=== PATIENT | female | born 1985 | race Caucasian/White ===

== ENCOUNTER 2019-08-22 00:09 | Inpatient (IN) | payer SELFPAY ==
[~2019-08-22] VITALS: Ht 165.1 cm; Wt 81.6 kg
[2019-08-22 00:50] LABS: BASOPHILS 0.2 % (0-2); EOSINOPHILS 0.4 % (0-7); HEMATOCRIT 35.4 % (36.0-48.0); HEMOGLOBIN 12.1 g/dL (12-16); IMMATURE GRANULOCYTES 0.6 % (0-5); LYMPHOCYTES 10.8 % (15-50); MCHC 34.2 g/dL (31.0-37.0); MCV 99.4 fL (80.0-100.0); MEAN PLATELET VOLUME 10.5 fL (7.4-10.4); MONOCYTES 8.8 % (2-11); NEUTROPHILS 79.2 % (40-80); PLATELET COUNT 347 10x3/uL (130-400); RBC 3.56 10x6/uL (4.00-5.40); RDW 14.6 % (11.5-14.5); WBC 16.7 10x3/uL (4.8-10.8)
[2019-08-22 00:55] LABS: UDS - AMPHET NEGATIVE QUAL (NEGATIVE); UDS - BARB NEGATIVE QUAL (NEGATIVE); UDS - BENZO NEGATIVE QUAL (NEGATIVE); UDS - COCAINE NEGATIVE QUAL (NEGATIVE); UDS - OPIATE POSITIVE QUAL (NEGATIVE); UDS - PCP NEGATIVE QUAL (NEGATIVE); UDS - THC POSITIVE QUAL (NEGATIVE)
[2019-08-22 01:00] VITALS: BP 136/81
[2019-08-22 01:02] LABS: BILIRUBIN NEGATIVE (NEGATIVE); GLUCOSE NEGATIVE (NEGATIVE); KETONE LARGE mg/dL (NEGATIVE); NITRITE NEGATIVE (NEGATIVE); SPECIFIC GRAVITY 1.015 (1.005-1.020); UROBILINOGEN NORMAL (NORMAL)
[2019-08-22 01:03] LABS: CALC OSMOLALITY 268 mosm/kg (275-300); CALCIUM 8.5 mg/dL (8.5-10.1); CHLORIDE - SERUM 101 mmol/L (98-107); CREATININE - SERUM 0.6 mg/dL (0.6-1.3); GLUCOSE 89 mg/dL (74-106); POTASSIUM - SERUM 3.2 mmol/L (3.5-5.1); SODIUM 137 mmol/L (136-145); UREA NITROGEN 2 mg/dL (7-18); eGFR NON AFRICAN AMERICAN > 90 mL/min (90-120)
[2019-08-22 01:04] LABS: BACTERIA MODERATE /hpf (NEGATIVE); EPITHELIAL CELLS 0-5 /hpf (0-5); RED CELLS - URINE 0-5 /hpf (0-5); WHITE CELLS - URINE 0-5 /hpf (NEGATIVE)
[2019-08-22 01:20] LABS: ALBUMIN 2.6 g/dL (3.4-5.0); ALKALINE PHOSPHATASE 210 U/L (30-120); ALT (SGPT) 41 U/L (10-68); BILIRUBIN - TOTAL 0.61 mg/dL (0.2-1.3); LIPASE 1144 U/L (73-393); PRO BNP 628 pg/mL (0-125); PROTEIN - SERUM 6.7 g/dL (6.4-8.2); TROPONIN-I < 0.017 ng/mL (0.000-0.060)
[2019-08-22 02:21] LABS: HCG URINE NEGATIVE (NEGATIVE)
[2019-08-22 02:30] VITALS: BP 121/68
[2019-08-22 08:17] LABS: INR 0.99 (0.85-1.17)
[2019-08-22 09:42] VITALS: BMI 29.9
--- NOTE | 2019-08-22 11:45 | NUR ---
TO IR VIA BED
[2019-08-22 15:49] VITALS: Ht 165.1 cm; Wt 81.6 kg
[2019-08-22 16:13] LABS: AMYLASE - BODY FLUID 452 U/L; LIPASE - BODY FLUID 13919 U/L
[2019-08-22 16:18] VITALS: BP 116/71
[2019-08-22 20:00] VITALS: BP 109/61
[2019-08-23] VITALS: BP 112/63
[2019-08-23 04:00] VITALS: BP 128/68
--- NOTE | 2019-08-23 04:30 | NUR ---
PT RESTING IN BED. EYES CLSOSED. NO SIGNS OF DISTRESS. BREATHING EVEN AND UNLABORED. IV SITE LT FA DRESSING CLEAN DRY AND INTACT. NO SIGNS OF INFECITON OR INFULTRATION. LUNG SOUNDS CLEAR. BOWEL SOUNDS ACTIVE. ABD INCISION SITE CLEAN DRY AND INTACT. TESS DRAIN LT UPPER ABD CLEAN DRY AND INTACT. ABD DISTENDED. WILL CONTINUE PLAN OF CARE. CALL LIGHT IN REACH. BED LOWERED AND LOCKED. BED RAILS UPX2.
[2019-08-23 04:54] LABS: BASOPHILS 0.2 % (0-2); EOSINOPHILS 0.4 % (0-7); HEMATOCRIT 32.7 % (36.0-48.0); HEMOGLOBIN 10.6 g/dL (12-16); IMMATURE GRANULOCYTES 0.5 % (0-5); LYMPHOCYTES 8.9 % (15-50); MCH 32.8 pg (26.0-34.0); MCHC 32.4 g/dL (31.0-37.0); MCV 101.2 fL (80.0-100.0); MEAN PLATELET VOLUME 10.8 fL (7.4-10.4); MONOCYTES 8.8 % (2-11); NEUTROPHILS 81.2 % (40-80); PLATELET COUNT 388 10x3/uL (130-400); RBC 3.23 10x6/uL (4.00-5.40); RDW 15.3 % (11.5-14.5); WBC 13.1 10x3/uL (4.8-10.8)
[2019-08-23 05:29] LABS: ALBUMIN 2.2 g/dL (3.4-5.0); ALKALINE PHOSPHATASE 226 U/L (30-120); ALT (SGPT) 31 U/L (10-68); BILIRUBIN - TOTAL 0.58 mg/dL (0.2-1.3); CALCIUM 7.9 mg/dL (8.5-10.1); CARBON DIOXIDE 20.9 mmol/L (21.0-32.0); CHLORIDE - SERUM 105 mmol/L (98-107); CREATININE - SERUM 0.6 mg/dL (0.6-1.3); GLUCOSE 85 mg/dL (74-106); PROTEIN - SERUM 6.1 g/dL (6.4-8.2); SODIUM 140 mmol/L (136-145); eGFR NON AFRICAN AMERICAN > 90 mL/min (90-120)
[2019-08-23 05:32] LABS: CALC OSMOLALITY 274 mosm/kg (275-300); POTASSIUM - SERUM 2.9 mmol/L (3.5-5.1); UREA NITROGEN 4 mg/dL (7-18)
--- NOTE | 2019-08-23 06:00 | NUR ---
I have reviewed this patient and I concur with the Shift Assessment completed by the Licensed Practical Nurse today this shift.
--- NOTE | 2019-08-23 07:23 | NUR ---
PT K+ IS 2.9 THIS MORNING, ORDERED EP FOR PT TO REPLACE K+. CONTINUE WITH PLAN OF CARE
--- NOTE | 2019-08-23 07:47 | NUR ---
PT INQUIRED ON WHEN SHE WILL BE DC HOME AND HOW MUCH TIME RECOVERY WILL BE, INFORMED PT THAT RECOVERY DIFFERS FOR EACH PT AND IT DEPENDS ON WELL HER BODY HEALS. PT K+ IS LOW ADMINISTERED PRN K+, PT TEMP IS 100.3 WILL ADMINISTER TYLENOL. ADVANCED PT DIET TO FL, CONTINUE WITH PLAN OF CARE
[2019-08-23 08:00] VITALS: BP 103/69
[2019-08-23 09:45] LABS: MAGNESIUM - SERUM 1.9 mg/dL (1.8-2.4)
[2019-08-23 12:00] VITALS: BP 106/59
[2019-08-23 16:00] VITALS: BP 116/77
--- NOTE | 2019-08-23 19:42 | NUR ---
I have reviewed this patient and I concur with the Shift Assessment completed by the Licensed Practical Nurse today this shift.
[2019-08-23 20:00] VITALS: BP 120/71
[2019-08-24] VITALS: BP 131/75
[2019-08-24 04:00] VITALS: BP 148/61
--- NOTE | 2019-08-24 06:12 | NUR ---
IV RESITED TO RIGHT FA 22 JULIO. ATEMPTS X3. PER BEAULL
[2019-08-24 06:57] LABS: BASOPHILS 0.1 % (0-2); EOSINOPHILS 0.7 % (0-7); HEMATOCRIT 28.3 % (36.0-48.0); HEMOGLOBIN 9.2 g/dL (12-16); IMMATURE GRANULOCYTES 0.3 % (0-5); LYMPHOCYTES 13.4 % (15-50); MCH 32.3 pg (26.0-34.0); MCHC 32.5 g/dL (31.0-37.0); MCV 99.3 fL (80.0-100.0); MEAN PLATELET VOLUME 10.8 fL (7.4-10.4); MONOCYTES 7.8 % (2-11); NEUTROPHILS 77.7 % (40-80); PLATELET COUNT 374 10x3/uL (130-400); RBC 2.85 10x6/uL (4.00-5.40); RDW 15.5 % (11.5-14.5); WBC 11.9 10x3/uL (4.8-10.8)
[2019-08-24 07:16] LABS: ALBUMIN 1.7 g/dL (3.4-5.0); ALKALINE PHOSPHATASE 266 U/L (30-120); BILIRUBIN - TOTAL 0.41 mg/dL (0.2-1.3); CALCIUM 7.3 mg/dL (8.5-10.1); CARBON DIOXIDE 24.4 mmol/L (21.0-32.0); CHLORIDE - SERUM 109 mmol/L (98-107); CREATININE - SERUM 0.6 mg/dL (0.6-1.3); GLUCOSE 98 mg/dL (74-106); MAGNESIUM - SERUM 1.7 mg/dL (1.8-2.4); PHOSPHOROUS 3.1 mg/dL (2.5-4.9); PROTEIN - SERUM 5.2 g/dL (6.4-8.2); SODIUM 140 mmol/L (136-145); eGFR NON AFRICAN AMERICAN > 90 mL/min (90-120)
[2019-08-24 07:17] LABS: CALC OSMOLALITY 274 mosm/kg (275-300); LIPASE 1676 U/L (73-393); UREA NITROGEN 2 mg/dL (7-18)
[2019-08-24 07:18] LABS: ALT (SGPT) 91 U/L (10-68); POTASSIUM - SERUM 2.9 mmol/L (3.5-5.1)
--- NOTE | 2019-08-24 07:19 | NUR ---
PT LYING IN BED ASLEEP, RECEIVED CALL FROM LAB THAT PT K+ IS 2.9. WILL REPLACE K+ USING PROTOCOL. CONTINUE WITH PLAN OF CARE
--- NOTE | 2019-08-24 07:41 | NUR ---
PT MAG WAS 1.7 WELL, ADMINISTERED REQUIRED EP DOSE, CONTINUE WITH PLAN OF CARE
[2019-08-24 08:28] VITALS: BP 126/79
[2019-08-24 12:24] VITALS: BP 125/83
--- NOTE | 2019-08-24 14:01 | NUR ---
PT REQUESTED PAIN MEDICATION, TOLD PT SHE STILL HAD ABOUT 30 MNUTES BEFORE I CAN ADMINISTER MORE. PT IS SITTING UP AT SIDE OF BED HEADING TO RESTROOM, REQUESTED NEW PAD FOR BED WELL UNDERGARMENTS AND SOCKS. GAVE PT REQUESTED ITEMS. NO OTHER NEEDS AT THIS TIME
--- NOTE | 2019-08-24 15:06 | NUR ---
PT STATED THAT SHE WAS TOLD BY DR THAT SHE WILL BE DC TODAY, NO ORDERS FOR DC SEEN, INFORMED PT THAT DR LAW WOULD NEED TO BE THE DR PUTTING ORDER IN FOR DC AND SO FAR ONLY RAYSHAWN SEEN. PT STATED SPOUSE IS AT HOME WITH 7 MONTH OLD AND 11 YR OLD AND ANXIOUS FOR HER TO BE HOME. INFORMED PT THAT DR SHOULD BE MAKING ROUNDS SOON. CONTINUE WITH PLAN OF CARE
--- NOTE | 2019-08-24 15:36 | NUR ---
PT STATED PAIN IS NOT CONTROLLED WITH CURRENT PAIN MEDICATION REGIMEN, SPOKE TO DR LAW AND WAS GIVEN VERBAL ORDER FOR TORADOL 30 Q6 PRN. WILL ADD MEDICATION TO PT JUN. PT ALSO RUNNING FEVER OF 100.7 WILL ORDER TYLENOL WELL
[2019-08-24 15:40] LABS: VANCOMYCIN - TROUGH 4.3 ug/mL (10.0-20.0)
[2019-08-24 15:41] LABS: POTASSIUM - SERUM 3.7 mmol/L (3.5-5.1)
--- NOTE | 2019-08-24 15:57 | NUR ---
PT C/O BLOATING AND GAS NOW. PT IS BELCHING A LOT, INQUIRED ON SOMETHING TO HELP WITH GAS, WILL SEE IF DR LAW IS STILL ON FLOOR AND WILL PASS ALONG MESSAGE
[2019-08-24 16:07] VITALS: BP 130/77
--- NOTE | 2019-08-24 17:55 | NUR ---
I have reviewed this patient and I concur with the Shift Assessment completed by the Licensed Practical Nurse today this shift.
--- NOTE | 2019-08-24 19:00 | NUR ---
BEDSIDE REPORT RECEIVED AND CARE OF PT ASSUMED. PT LYING IN SUPINE POSITION WITH EYES CLOSED AND UNLABORED BREATHING. IV TO RIGHT FA PATENT WITH NS INFUSING AT 200 ML/HR. WILL MONITOR FOR NEEDS.
--- NOTE | 2019-08-24 19:48 | NUR ---
HS MEDICATIONS GIVEN TO INCLUDE MORPHINE PER REQUEST FOR PAIN. WILL CONTINUE TO MONITOR FOR NEEDS.
[2019-08-24 20:00] VITALS: BP 113/71
[2019-08-25] VITALS: BP 115/77
[2019-08-25 04:00] VITALS: BP 129/82
[2019-08-25 05:30] LABS: BASOPHILS 0.1 % (0-2); EOSINOPHILS 1.3 % (0-7); HEMATOCRIT 28.6 % (36.0-48.0); HEMOGLOBIN 9.3 g/dL (12-16); IMMATURE GRANULOCYTES 0.3 % (0-5); LYMPHOCYTES 12.6 % (15-50); MCH 32.6 pg (26.0-34.0); MCHC 32.5 g/dL (31.0-37.0); MCV 100.4 fL (80.0-100.0); MEAN PLATELET VOLUME 10.7 fL (7.4-10.4); NEUTROPHILS 79.7 % (40-80); PLATELET COUNT 405 10x3/uL (130-400); RBC 2.85 10x6/uL (4.00-5.40); RDW 15.9 % (11.5-14.5); WBC 9.6 10x3/uL (4.8-10.8)
[2019-08-25 06:06] LABS: ALBUMIN 1.9 g/dL (3.4-5.0); ALKALINE PHOSPHATASE 253 U/L (30-120); ALT (SGPT) 92 U/L (10-68); BILIRUBIN - TOTAL 0.36 mg/dL (0.2-1.3); CALC OSMOLALITY 276 mosm/kg (275-300); CALCIUM 7.5 mg/dL (8.5-10.1); CHLORIDE - SERUM 107 mmol/L (98-107); CREATININE - SERUM 0.7 mg/dL (0.6-1.3); GLUCOSE 93 mg/dL (74-106); LIPASE 738 U/L (73-393); MAGNESIUM - SERUM 1.8 mg/dL (1.8-2.4); PHOSPHOROUS 2.4 mg/dL (2.5-4.9); POTASSIUM - SERUM 3.1 mmol/L (3.5-5.1); PROTEIN - SERUM 5.5 g/dL (6.4-8.2); SODIUM 141 mmol/L (136-145); UREA NITROGEN 2 mg/dL (7-18); eGFR NON AFRICAN AMERICAN > 90 mL/min (90-120)
[2019-08-25 08:42] VITALS: BP 113/74
--- NOTE | 2019-08-25 08:59 | NUR ---
PT SITTING UP IN BED HAD JUST RETURNED FROM RESTROOM. STATED SHE IS READY TO GO HOME AND INQUIRED ON WHEN DR'S WILL BE IN. EXPLAINED THAT I AM UNSURE OF WHEN DRS WILL BE HERE BUT WILL LET THEM KNOW SOON I SEE THEM OF HER WISHES. IV IN RT FA, CDI, CL IN REACH, BILI DRAIN ON LEFT SIDE, CDI ONLY HAD 10CC IN BAG WHICH IS WHAT WAS FLUSHED. CONTINUE WITH PLAN OF CARE
--- NOTE | 2019-08-25 11:47 | NUR ---
PT IS READY TO LEAVE AND HAS BEEN ASKING TO CALL DR LAW, EXPLAINED TO PT THAT NURSE PRACTITIONER RAYSHAWN IS HERE AND WILL BE IN SHORTLY TO SEE HER, PT SAW DR GUERRA AND WAS TOLD BY DR GUERRA SHE CAN GO AND PT IS READY FOR DC. EXPLAINED AGAIN TO PT THAT WE ARE WAITING FOR PRIMARY TO PLACE DC ORDERS. IV ABX TO LEFT FA RUNNING, CONTINUE WITH PLAN OF CARE
[2019-08-25 12:35] VITALS: BP 126/80
[2019-08-25] MEDS ORDERED: LEVAQUIN750 MG PO (13:38)
[2019-08-25] MEDS ORDERED: FLORAJEN3 CAPS460 MG PO (13:38)
--- NOTE | 2019-08-25 13:51 | MORECARE ---
CASE MANAGEMENT DISCHARGE SUMMARY PATIENT: ALMITA PARNELL UNIT: [id number] ADM DATE: 08/22/19 AGE: 34 : 87 SEX: F ROOM/BED: D.2224 AUTHOR: GARLAND MOLINA PHYSICIAN: REFERRING PHYSICIAN: ADAM FLORES DO DATE OF SERVICE: 08/25/19 Discharge Plan Patient Name: ALMIT[facility] PARNELL [facility] [facility] 1985 Planned Disposition: Home Anticipated Discharge Date: 08/25/19 Discharge Date: Expected LOS: 3 Initial Reviewer: [email or web address] Initial Review Date: 08/25/2019 Generated: 08/25/19 2:51 pm Patient Name: ALMITA PARNELL Page 48472 at 1351 All edits/amendments must be made on the electronic document DICTATION DATE: 08/25/19 1351 MARINATOR: OLIVERIO 08/25/19 1351 RPT#: [id number] DC DATE: STATUS: ADM IN [facility] [address] [place] [address] END OF REPORT
[2019-08-25] MEDS ORDERED: TYLENOL W/CODEI1 TAB PO (13:55)
--- NOTE | 2019-08-25 13:59 | MORECARE ---
CASE MANAGEMENT DISCHARGE SUMMARY PATIENT: ALMITA PARNELL UNIT: [id number] ADM DATE: 08/22/19 AGE: 34 : 87 SEX: F ROOM/BED: D.2224 AUTHOR: GARLAND MOLINA PHYSICIAN: REFERRING PHYSICIAN: ADAM FLORES DO DATE OF SERVICE: 08/25/19 Discharge Plan Patient Name: ALMITA PARNELL Facility: [facility]:[place] : 1985 Planned Disposition: Home Anticipated Discharge Date: 08/25/19 Discharge Date: Expected LOS: 3 Initial Reviewer: [email or web address] Initial Review Date: 08/25/2019 Generated: 08/25/19 2:58 pm Comments DCP- Discharge Planning Updated by [email or web address]: Skye Bass on 08/25/19 12:[address] Patient Name: ALMITA PARNELL Admission Status: ER Accout number: [id number] Admission Date: 08-22-2019 : 1985 Admission Diagnosis: Attending: ADAM FLORES Current LOS: 3 Anticipated DC Date: 08-25-2019 Planned Disposition: Home Primary Insurance: UNINSURED DISCOUNT PLAN Discharge Planning Comments: States is visiting from [place], will be here another couple of days. States her will pick her up at discharge. States he has already picked up the flushes from the pharmacy. I informed her that she will have an antibiotic to case picker at her pharmacy. She is asking for a pain RX, I have informed production coordinator. She denies other needs. Home with spouse. Rubber Gasket Inspector Trimmer: Skye Bass DCPIA - Discharge Planning Initial Assessment Updated by [email or web address]: Skye Bass on 08/25/19 1:52 pm * Is the patient Alert and Oriented? Yes * How many steps to enter\exit or inside your home? 0/0 * PCP Dr. Campos in [place], [place] * Pharmacy [facility] * Preadmission Environment Home with Family * ADLs Independent * Equipment None * List name and contact numbers for known caregivers / representatives who currently or will assist patient after discharge: Eduard Parnell - spouse - [phone] * Verbal permission to speak to the caregivers and representatives has been obtained from the patient. Yes * Community resources currently utilized None * Additional services required to return to the preadmission environment? No * Can the patient safely return to the preadmission environment? Yes * Has this patient been hospitalized within the prior 30 days at any hospital? No Last DP export: 08/25/19 12:51 p Patient Name: ALMITA PARNELL Page 97150 at 1359 All edits/amendments must be made on the electronic document DICTATION DATE: 08/25/191357 EDUCATIONAL AUDIOLOGIST: OLIVERIO 08/25/191357 RPT#: [id number] DC DATE: STATUS: ADM IN [facility] [address] [place] [address] END OF REPORT
--- NOTE | 2019-08-25 16:02 | NUR ---
PT DC HOME, IV DC WITH CATHETER INTACT, WENT OVER INSTRUCTIONS WITH PT AND HOW TO DRAIN BAG. ALL QUESTIONS ANSWERED.PT TAKEN TO ER ENTRANCE BY BERNICE
--- NOTE | 2019-08-26 08:29 | MORECARE ---
CASE MANAGEMENT DISCHARGE SUMMARY PATIENT: ALMITA PARNELL UNIT: [id number] ADM DATE: 08/22/19 AGE: 34 : 87 SEX: F ROOM/BED: D.2224 AUTHOR: GARLAND MOLINA PHYSICIAN: REFERRING PHYSICIAN: ADAM FLORES DO DATE OF SERVICE: 08/26/19 Discharge Plan Patient Name: ALMITA PARNELL Facility: [facility]:[place] : 1985 Planned Disposition: Home Anticipated Discharge Date: 08/25/19 Discharge Date: 08/25/2019 Expected LOS: 3 Initial Reviewer: [email or web address] Initial Review Date: 08/25/2019 Generated: 08/26/19 9:28 am Comments DCP- Discharge Planning Updated by [email or web address]: Skye Bass on 08/25/19 12:[address] Patient Name: ALMITA PARNELL Admission Status: ER Accout number: [id number] Admission Date: 08-22-2019 : 1985 Admission Diagnosis: Attending: ADAM FLORES Current LOS: 3 Anticipated DC Date: 08-25-2019 Planned Disposition: Home Primary Insurance: UNINSURED DISCOUNT PLAN Discharge Planning Comments: States is visiting from [place], will be here another couple of days. States her will pick her up at discharge. States he has already picked up the flushes from the pharmacy. I informed her that she will have an antibiotic to pick up truck driver at her pharmacy. She is asking for a pain RX, I have informed care transition coordinator. She denies other needs. Home with spouse. Veneer Stapler: Skye Bass DCPIA - Discharge Planning Initial Assessment Updated by [email or web address]: Skye Bass on 08/25/19 1:52 pm * Is the patient Alert and Oriented? Yes * How many steps to enter\exit or inside your home? 0/0 * PCP Dr. Campos in [place], [place] * Pharmacy [facility] * Preadmission Environment Home with Family * ADLs Independent * Equipment None * List name and contact numbers for known caregivers / representatives who currently or will assist patient after discharge: Eduard Parnell - spouse - [phone] * Verbal permission to speak to the caregivers and representatives has been obtained from the patient. Yes * Community resources currently utilized None * Additional services required to return to the preadmission environment? No * Can the patient safely return to the preadmission environment? Yes * Has this patient been hospitalized within the prior 30 days at any hospital? No Last DP export: 08/25/19 12:59 p Patient Name: ALMITA PARNELL Page 94244 at 0829 All edits/amendments must be made on the electronic document DICTATION DATE: 08/26/19827 ADMINISTRATIVE SUPPORT ASSISTANT: OLIVERIO 08/26/19827 RPT#: [id number] DC DATE:08/25/19 STATUS: DIS IN [facility] [address] [place] [address] END OF REPORT
== END 2019-08-25 16:03 | disposition home or self-care (01) | DRG 440 ==
LOC: D.ER 00:09 → D.MS 04:06
PROVIDERS: Family Medicine; Radiology Vascular & Interventional Radiology; ADMIT Family Medicine; ATTEND Family Medicine
PROC: 0F9G30Z Drainage of Pancreas with Drainage Device, Percutaneous Approach (ICD-10-PCS; principal; 2019-08-22 11:30)
DX: K85.90 Acute pancreatitis without necrosis or infection, unspecified (principal); E87.6 Hypokalemia; E86.0 Dehydration; F10.10 Alcohol abuse, uncomplicated; R11.2 Nausea with vomiting, unspecified; D72.829 Elevated white blood cell count, unspecified